=== PATIENT | male | born 1950 | race Caucasian/White ===

== ENCOUNTER 2020-11-06 06:47 | Inpatient (IN) ==
[2020-11-06] MEDS ORDERED: niCARdipine HCL INJ 2.5 MG/ML 10 ML AMP ONE (07:45)
[2020-11-06] MEDS ORDERED: HEPARIN (PORCINE) 1000 UNIT/ML 10 ML (CATH LAB USE ONLY) ONE (07:45)
[2020-11-06] MEDS ORDERED: MIDAZOLAM HCL 1 MG/ML 2ML VIAL ONE (07:45)
[2020-11-06] MEDS ORDERED: fentaNYL citrate 100 MCG/2 ML VIAL ONE (07:45)
[2020-11-06] MEDS ORDERED: NITROGLYCERIN/D5W 100MCG/ML 20ML SYR ONE (07:46)
--- NOTE | 2020-11-06 07:46 | Pre Anesthesia Assessment ---
Date of Service November 06, 2020 Pre Sedation Assessment Vital Signs Temp Pulse Resp BP Pulse Ox 11/06/20 07:03 36.8 C 84 16 154/86 H 96 Pre-Sedation Airway Assessment Smoking Status: Former smoker Hx Sleep Apnea: No Short, Thick Neck: No Thyromental Distance: > or= 3.5 Finger Breadths Oral Cavity: + WNL Mallampati Class: III ASA: ASA3 NPO Status Date of Last Intake of Fluids: 11/06/20 Time of Last Intake of Fluids: 04:30 Last Oral Intake of Fluids Comment: sip with meds Date of Last Intake of Solid Food: 11/05/20 Time of Last Intake of Solid Foods: 18:00 Notes The planned sedation has been discussed with the patient. Informed Consent was obtained. I have identified the patient, determined the appropriateness of sedation and have assessed the patient immediately prior to the procedure. All medicine(s) and interventions are by my order.
--- NOTE | 2020-11-06 07:47 | History & Physical Bridge Note ---
Date of Service November 06, 2020 History & Physical Bridge Note I have examined the patient, reviewed the History & Physical and in the interval since the performance of the History & Physical I have noted the following changes of clinical significance: no changes noted I have explained the risk, benefit and intent to the procedure with the patient and he is willing to proceed.
[2020-11-06] MEDS: SODIUM CHLORIDE 0.9% 1000ML 1,000 ML IV SCH ×2 (08:44→21:10)
--- NOTE | 2020-11-06 08:54 | Cardiac Catheterization ---
Date of Service November 06, 2020 Cardiac Cath Report Cardiac Cath Report Procedure: 1. Coronary angiography 2. Left heart catheterization 3. Left ventriculogram History: This is a 70-year-old male patient who has moderate aortic stenosis by echocardiography and presented with progressive dyspnea on exertion. Procedure summary: After informed consent was obtained the patient was taken to the cardiac catheterization lab where access was obtained from the right radial artery. P reformed 5 Yi diagnostic catheters were utilized for the coronary angiograms. A 5 Yi pigtail catheter was utilized for the left heart catheterization and left ventriculogram. Following the procedure the patient was taken to the holding area the [facility] in stable condition. ACC data: Start time 8:08 AM End time 8:30 AM Opening aortic pressure 123/72 Left ventricular pressure 156/23 Closing aortic pressure 144/67 Sedation 1 mg intravenous Versed IV fluid 75 cc normal saline Contrast 110 cc Optiray Fluoroscopy time 7.1 minutes Radiation 1234 mGy DAP 115.27 [place] per centimeter squared Right dominant system AUC score 7 Coronary angiography: Selective injections of the left coronary artery reveal heavy calcification of the left main trunk and proximal LAD and circumflex. There is a 95% ostial left main stenosis. The remainder of the left coronary system has nonobstructive disease. The left circumflex gives off a large ramus branch and 2 smaller marginal branches distally. The LAD gives off a medium sized first diagonal branch and a large second diagonal branch and then continues on to the apex of the heart. Selective injections of the right coronary artery revealed to be dominant. It is diffusely diseased in its proximal and mid segment and subtotaled in its mid segment. Left ventriculogram: The pigtail catheter easily went into the left ventricle across the aortic valve. There is approximately a 10 to 15 mm gradient across the aortic valve. Left ventricular systolic function is normal with an estimated left ventricular ejection fraction is 60%. The mitral valve is competent. Summary: The patient has severe coronary artery disease with an ostial left main stenosis and a subtotaled mid right. He has mild to moderate aortic stenosis and normal LV function. Recommendations: This patient is best treated with open heart surgery and coronary artery bypass. We will refer the patient to cardiothoracic surgery at [facility].
[2020-11-06] MEDS ORDERED: Heparin IV Adult Wt-Based Standard *NO* Bolus Protocol IV ONE (09:29)
[2020-11-06] MEDS ORDERED: HEPARIN 25000 UNIT/500 ML D5W IV ONE (09:37)
[2020-11-06] MEDS: HEPARIN SODIUM/DEXTROSE 25,000 UNITS/500 ML BAG IV SCH (09:45)
[2020-11-06] MEDS ORDERED: ALBUTEROL HFA 8 GM INHALER INH PRN (12:02)
[2020-11-06] MEDS ORDERED: ALBUTEROL 0.083% NEBU SOLN 3 ML VIAL INH PRN (12:02)
[2020-11-06 17:28] LABS: Partial Thromboplastin Ratio 2.1
[2020-11-06 17:46] LABS: Partial Thromboplastin Time 55.5 Seconds (21.0-31.0)
[2020-11-06] MEDS ORDERED: METOPROLOL TARTRATE 50 MG TAB PO SCH (21:00)
[2020-11-06] MEDS ORDERED: ATORVASTATIN 40 MG TAB PO SCH (21:00)
[2020-11-06] MEDS ORDERED: OMEGA-3 (PURIFIED FISH OIL) 1 GM CAP PO SCH (21:00)
[2020-11-06] MEDS: OMEGA-3 (PURIFIED FISH OIL) 1 GM CAP PO SCH (21:09)
[2020-11-06] MEDS: METOPROLOL TARTRATE 50 MG TAB PO SCH (21:09)
[2020-11-06] MEDS ORDERED: metFORMIN HCL ER 500 MG TABCR PO SCH (21:30)
[2020-11-06] MEDS ORDERED: Nursing to Pharmacy Communication SCH (22:15)
[2020-11-06] MEDS ORDERED: GLUCOSE 10 TABS/TUBE PO PRN (22:30)
[2020-11-06] MEDS ORDERED: CARBOHYDRATES FOR HYPOGLYCEMIA PO PRN (22:30)
[2020-11-06] MEDS ORDERED: GLUCAGON FOR INJ 1 MG VIAL IM PRN (22:30)
[2020-11-06] MEDS ORDERED: DEXTROSE 50% 50 ML SYRINGE IV PRN (22:30)
[2020-11-06] MEDS ORDERED: GLUCOSE 40% GEL 15 GM TUBE PO PRN (22:30)
[2020-11-06] MEDS: INSULIN ASPART 100 UNITS/ML 3 ML PEN SC SCH (23:33)
[2020-11-07] MEDS: HEPARIN SODIUM/DEXTROSE 25,000 UNITS/500 ML BAG IV SCH (03:18)
[2020-11-07 05:24] LABS: Partial Thromboplastin Ratio 2.9
[2020-11-07 05:32] LABS: Partial Thromboplastin Time 75.4 Seconds (21.0-31.0)
[2020-11-07] MEDS: SODIUM CHLORIDE 0.9% 1000ML 1,000 ML IV SCH (07:13)
[2020-11-07] MEDS: INSULIN ASPART 100 UNITS/ML 3 ML PEN SC SCH ×2 (07:58→12:21)
[2020-11-07] MEDS: OMEGA-3 (PURIFIED FISH OIL) 1 GM CAP PO SCH (08:00)
[2020-11-07] MEDS: METOPROLOL TARTRATE 50 MG TAB PO SCH (08:00)
[2020-11-07] MEDS ORDERED: amLODIPine BESYLATE 5 MG TAB PO SCH ×2 (09:00)
[2020-11-07] MEDS ORDERED: MULTIVITAMIN TAB PO SCH (09:00)
[2020-11-07] MEDS ORDERED: ASPIRIN 81 MG ECTAB PO SCH (09:00)
[2020-11-07] MEDS ORDERED: LOSARTAN POTASSIUM 50 MG TAB PO SCH ×2 (09:00)
[2020-11-07] MEDS ORDERED: hydroCHLOROthiazide 25 MG TAB PO SCH ×2 (09:00)
[2020-11-07] MEDS ORDERED: UMECLIDINIUM/VILANTEROL 62.5/25MCG 7 PUFFS/INHALER INH SCH (09:00)
[2020-11-07] MEDS ORDERED: ATORVASTATIN 40 MG TAB PO SCH (09:00)
[2020-11-07] MEDS ORDERED: FLUTICASONE FUROATE 100MCG 14 PUFFS/INHALER INH SCH (09:00)
[2020-11-07] MEDS ORDERED: VITAMIN B COMPLEX TAB PO SCH (09:00)
[2020-11-07] MEDS ORDERED: PANTOprazole 40 MG TAB PO SCH ×2 (09:00)
--- NOTE | 2020-11-07 09:22 | Cardiology Progress Note ---
Date of Service November 07, 2020 Assessment & Plan (1) CAD (coronary artery disease), [place] coronary artery: (2) Diabetes: (3) Aortic stenosis: Plan: The patient is clinically stable and still waiting for a bed at [facility] [place] [facility]. Admission and Anticipated Discharge Date Admission Date: November 06, 2020 Subjective The patient had an uneventful night. No chest pain. No shortness of breath. Review of Systems Review of Systems: Review of Systems: See HPI for pertinent positives. All other 10 point review of systems are negative. Physical Exam Physical Exam: General: no acute distress and stated age Head: normocephalic, no masses, lesions, tenderness or abnormalities Eyes: conjunctiva are pink and non-injected, sclera clear Neck: supple, no adenopathy, no bruits, normal jugular venous pulse, no hepatojugular reflux Chest: normal shape and normal respiratory effort Lungs: clear to auscultation and percussion Cardiac Exam: - regular rate & rhythm, no murmurs gallops or rubs - normal S1, normal S2 Pulses: 2(+) throughout Abdomen: abdomen soft, non-tender, no abnormal masses and no hepatosplenomegaly Musculoskeletal: no gait disturbance, no joint inflammation, no deforming arthritis Extremities: no edema and no cyanosis Neuro: grossly normal exam Results & Data ([facility]) Vital Signs (Past 12 Hours) Vital Signs Temp Pulse Pulse Pulse Resp BP Pulse Ox 11/07/20 07:46 36.4 C L 83 18 164/76 H 96 11/07/20 03:09 36.8 C 75 12 133/67 96 11/06/20 23:08 36.7 C 78 18 148/75 H 95 11/06/20 22:20 80 Laboratory Results Laboratory Results - last 24 hr 11/06/20 11/06/20 11/07/20 16:49 21:05 00:38 APTT 55.5 H* PTT Ratio 2.1 POC Glucose 118 H 127 H 11/07/20 11/07/20 04:32 07:42 APTT 75.4 H* PTT Ratio 2.9 POC Glucose 135 H Medications Administered Current Inpatient Medications Albuterol (Albuterol 0.083% Nebu Soln 3 Ml Vial) 2.5 mg INH Q4H PRN PRN Reason: Shortness Of Breath Stop: 12/06/20 12:01 Albuterol (Albuterol Hfa 8 Gm Inhaler) 1 puffs INH QID PRN PRN Reason: Shortness Of Breath Stop: 12/06/20 12:01 Amlodipine Besylate (Amlodipine Besylate 5 Mg Tab) 5 mg PO QAM MONIQUE Stop: 12/07/20 08:59 Last Admin: 11/07/20 07:59 Dose: 5 mg Documented by: Aspirin (Aspirin 81 Mg Ectab) 81 mg PO QAM MONIQUE Stop: 12/07/20 08:59 Last Admin: 11/07/20 07:59 Dose: 81 mg Documented by: Atorvastatin Calcium (Atorvastatin 40 Mg Tab) 40 mg PO HS MONIQUE Stop: 12/06/20 20:59 Last Admin: 11/06/20 21:09 Dose: 40 mg Documented by: Dextrose (Dextrose 50% 50 Ml Syringe) 25 - 50 ml IV UD PRN; Protocol PRN Reason: Hypoglycemia Protocol Stop: 12/06/20 22:29 Fish Oil (Bath-3 (Purified Fish Oil) 1 Gm Cap) 1 gm PO BID MONIQUE Stop: 12/06/20 20:59 Last Admin: 11/07/20 08:00 Dose: 1 gm Documented by: Fluticasone Furoate (Fluticasone Furoate 100mcg 14 Puffs/Inhaler) 1 puffs INH DAILY MONIQUE Stop: 12/07/20 08:59 Last Admin: 11/07/20 08:00 Dose: 1 puffs Documented by: Glucagon (Glucagon For Inj 1 Mg Vial) 1 mg IM UD PRN; Protocol PRN Reason: Hypoglycemia Protocol Stop: 12/06/20 22:29 Glucose (Glucose 40% Gel 15 Gm Tube) 15 - 30 gm PO UD PRN; Protocol PRN Reason: Hypoglycemia Protocol Stop: 12/06/20 22:29 Glucose (Glucose 10 Tabs/Tube) 4 - 8 tabs PO UD PRN; Protocol PRN Reason: Hypoglycemia Protocol Stop: 12/06/20 22:29 Hydrochlorothiazide (Hydrochlorothiazide 25 Mg Tab) 25 mg PO QAM MONIQUE Stop: 12/07/20 08:59 Last Admin: 11/07/20 07:59 Dose: 25 mg Documented by: Sodium Chloride (Nss 1000ml) 1,000 mls @ 91 mls/hr IV .Q11H MONIQUE Stop: 12/06/20 07:59 Last Admin: 11/07/20 07:13 Dose: 91 mls/hr Documented by: Heparin Sodium/Dextrose (Heparin Sodium/Dextrose) 25,000 units in 500 mls @ 27 mls/hr IV .[id number] [facility]; Protocol Stop: 12/06/20 09:44 Last Titration: 11/07/20 05:32 Dose: 1,350 units/hr, 27 mls/hr Documented by: Insulin Aspart (Insulin Aspart 100 Units/Ml 3 Ml Pen) 0 units SC ACHS [facility] Stop: 12/06/20 22:29 Last Admin: 11/07/20 07:58 Dose: Not Given Documented by: Losartan Potassium (Losartan Potassium 50 Mg Tab) 100 mg PO QAM [facility] Stop: 12/07/20 08:59 Last Admin: 11/07/20 07:59 Dose: 100 mg Documented by: Metformin HCl (Metformin Hcl Er 500 Mg Tabcr) 1,000 mg PO BIDM [facility] Stop: 12/08/20 20:59 Metoprolol Tartrate (Metoprolol Tartrate 50 Mg Tab) 50 mg PO BID [facility] Stop: 12/06/20 20:59 Last Admin: 11/07/20 08:00 Dose: 50 mg Documented by: Miscellaneous (Clobetasol [Temovate] 0.05 % Cream~Order Awaiting Action) 1 ea N/A QS [facility] Stop: 12/06/20 15:59 Last Admin: 11/07/20 07:59 Dose: Not Given Documented by: Miscellaneous (Carbohydrates For Hypoglycemia ) 15 - 30 gm PO UD PRN PRN Reason: Hypoglycemia Treatment Stop: 12/06/20 22:29 Multivitamins (Multivitamin Tab) 1 tab PO DAILY [facility] Stop: 12/07/20 08:59 Last Admin: 11/07/20 07:59 Dose: 1 tab Documented by: Pantoprazole Sodium (Pantoprazole 40 Mg Tab) 40 mg PO QAM [facility] Stop: 12/07/20 08:59 Last Admin: 11/07/20 07:59 Dose: 40 mg Documented by: Umeclidinium/Vilanterol (Umeclidinium/Vilanterol 62.5/25mcg 7 Puffs/Inhaler) 1 puffs INH DAILY [facility] Stop: 12/07/20 08:59 Last Admin: 11/07/20 08:00 Dose: 1 puffs Documented by: Vitamin B Complex (Vitamin B Complex Tab) 2 tab PO DAILY MONIQUE Stop: 12/07/20 08:59 Last Admin: 11/07/20 07:59 Dose: 2 tab Documented by:
[2020-11-07 11:49] LABS: Partial Thromboplastin Ratio 2.4
[2020-11-07 11:51] LABS: Partial Thromboplastin Time 62.8 Seconds (21.0-31.0)
--- NOTE | 2020-11-07 15:25 | Discharge Summary ---
Date of Service November 07, 2020 Admission HPI Per Admitting Provider The patient was at after a cardiac catheterization pending transfer for open heart surgery and coronary artery bypass. Admission Exam Per Admitting Provider General: no acute distress and stated age Head: normocephalic, no masses, lesions, tenderness or abnormalities Eyes: conjunctiva are pink and non-injected, sclera clear Neck: supple, no adenopathy, no bruits, normal jugular venous pulse, no hepatojugular reflux Chest: normal shape and normal respiratory effort Lungs: clear to auscultation and percussion Cardiac Exam: - regular rate & rhythm, no murmurs gallops or rubs - normal S1, normal S2 Pulses: 2(+) throughout Abdomen: abdomen soft, non-tender, no abnormal masses and no hepatosplenomegaly Musculoskeletal: no gait disturbance, no joint inflammation, no deforming arthritis Extremities: no edema and no cyanosis Neuro: grossly normal exam Principal Diagnosis 1. Coronary artery disease with severe three-vessel involvement including left main trunk 2. Aortic stenosis 3. Diabetes Discharge Exam General: no acute distress and stated age Head: normocephalic, no masses, lesions, tenderness or abnormalities Eyes: conjunctiva are pink and non-injected, sclera clear Neck: supple, no adenopathy, no bruits, normal jugular venous pulse, no hepatojugular reflux Chest: normal shape and normal respiratory effort Lungs: clear to auscultation and percussion Cardiac Exam: - regular rate & rhythm, no murmurs gallops or rubs - normal S1, normal S2 Pulses: 2(+) throughout Abdomen: abdomen soft, non-tender, no abnormal masses and no hepatosplenomegaly Musculoskeletal: no gait disturbance, no joint inflammation, no deforming arthritis Extremities: no edema and no cyanosis Neuro: grossly normal exam Discharge Data Allergies Allergy/AdvReac Type Severity Reaction Status Date / Time omeprazole [From Prilosec] Allergy Rash Verified 11/06/20 07:11 Vaccinations The patient is vaccinated against Covid and had a negative Covid screen before admission Procedures Performed Operation Date: 11/06/20 08:00 Actual Procedures s Cineradiography w/Routine Exam - Gabe Jenkins, DO p Cath, Left with Cors and Vent - Gabe Jenkins, DO Ordered Studies 11/06/20 06:34 CL Cath Imgs for PACS use only Stat Hospital Course (1) CAD (coronary artery disease), [place] coronary artery: (2) Diabetes: (3) Aortic stenosis: The patient is clinically stable and still waiting for a bed at [facility]. Total Time Total Time Spent Total Time Spent (In Minutes): 30 minutes spent Discharge Plan Discharge Items Patient Disposition: Transfer Acute Care Hospital Reason For Visit: LEFT MAIN DISEASE Discharge Diagnosis: 1. Coronary artery disease 2. Aortic stenosis 3. Diabetes mellitus Activity: Per Instructions section Non-emergency contact: [employer] Call non-emergency contact if: you have any medication questions, your symptoms worsen, your pain is not controlled, your pain is worsening, your pain is unusual for you, your pain is concerning for you, you have a fever, your temperature is above 101, your temperature is above 101.5, your wound has increased redness, your wound has increased drainage and your wound pain has increased Follow-up/Referrals: Virginia Beth MD [Primary Care Provider] - Diet: Heart Healthy Addtl Attending Provider Instructions: ACTIVITY RECOMMENDATIONS: Excess manipulation of the wrist should be avoided for the next 24-48 hours. * No lifting over 2 pounds (approximately a 1/2 gallon of milk) with the utilized arm for 24 hours. * No strenuous activity such as bowling or tennis for 3 days. * Keep the site of the procedure covered with a bandage for 24 hours. *You may shower the day after the procedure. Do not take a tub bath or submerge the puncture site in water for the next 3 days. *Do not operate any motorized equipment for 3 days. SPECIAL CARE INSTRUCTIONS: The site may be slightly bruised and sore following your procedure. Should any of the following occur, contact the Dr. who performed your procedure. 1. Redness/inflammation, swelling, chills, or fever, or colored drainage at procedure site within 3-7 days after your procedure. 2. Coldness, discoloration, ongoing numbness, severe pain, or swelling. Expect mild tingling of hand and tenderness at the puncture site for up to three days. If this persists beyond three days, or other symptoms develop, notify the Dr. who performed your procedure. BLEEDING: If the procedure site on your wrist begins to bleed, do not panic 1. Place 1 or 2 fingers firmly just slightly above the insertion site to stop the bleeding. You may be able to feel your pulse as you hold pressure. 2. Lift your finger after 5 minutes to see if the bleeding has stopped. 3. Once the bleeding has stopped, gently wipe the wrist area clean with a bandage. * If the bleeding from your wrist does not stop after 10 minutes, or if there is a large amount of bleeding or spurting, call 911 (do not drive yourself to the hospital). SKIN IRRITATION: * You may experience some redness and/or swelling in the area where radiation was administered. If any skin irritation occurs, please contact your family physician. FOLLOW UP VISIT: Keep any scheduled doctor appointments. Pending Studies at Discharge: No Stand-Alone Forms: My [facility] Skilled Items Patient informed of condition?: Yes DNR: No Discharge Level of Care: Other Communicable Disease: No Discharge Prognosis: Stable Lines: Peripheral IV Urinary Catheter: No Medications and DC Order Prescriptions: Continued multivitamin Tablet 1 tab PO DAILY RF: 0 atorvastatin 40 mg Tablet 40 mg PO DAILY RF: 0 albuterol sulfate [Proventil] 2.5 mg /3 mL (0.083 %) Solution For Nebulization 2.5 mg INHALATION Q4H PRN (Reason: Shortness Of Breath) RF: 0 clobetasol [Temovate] 0.05 % Cream 1 applic TOPICAL DAILY RF: 0 amlodipine 5 mg Tablet 10 mg PO DAILY RF: 0 pantoprazole [Protonix] 40 mg Tablet,Delayed Release (Dr/Ec) 40 mg PO DAILY RF: 0 metoprolol tartrate 50 mg Tablet 50 mg PO BID RF: 0 vitamin B complex [B Complex 1] Tablet 2 tab PO DAILY RF: 0 hydrochlorothiazide 25 mg Tablet 25 mg PO DAILY RF: 0 albuterol sulfate [Ventolin HFA] 90 mcg/actuation Hfa Aerosol Inhaler 1 puff INHALATION QID PRN (Reason: Shortness Of Breath) RF: 0 losartan [Cozaar] 100 mg Tablet 100 mg PO DAILY RF: 0 metformin 500 mg Tablet Extended Release 24 Hr 1,000 mg PO BID RF: 0 [place] 3 Capsule 1,000 mg PO BID RF: 0 diclofenac sodium 1 % Gel 2 g TOPICAL QID RF: 0 Trelegy Ellipta 100-62.5-25 mcg Blister With Device 1 inh INHALATION DAILY RF: 0 Discharge Orders: Discharge Order (Routine); Ordered 11/07/20 Ordered By: Gabe Jenkins Admission Data Admit Date/Time: 11/06/20 14:56 Attending Provider: Gabe Jenkins Admit Provider: Gabe Jenkins Primary Care Provider: Virginia Beth
--- NOTE | 2020-11-08 07:48 | Post Anesthesia Assessment ---
Date of Service November 08, 2020 Post Sedation Assessment Vital Signs Temp Pulse Pulse Resp BP BP Pulse Ox 11/07/20 17:58 36.8 C 75 89 18 150/69 H 146/71 H 99 11/07/20 16:00 36.8 C 89 18 150/69 H 99 11/07/20 14:20 97 H 11/07/20 11:50 36.5 C 69 18 153/81 H 96 Recovery Score Activity: Moves 4 extremities Respiration: Deep Breath/Cough Circulation: +/-20% PreAnes Value Consciousness: Fully Awake Oxygen Saturation: > 92% On Room Air Post Anesthesia Score: 10 Discharge Sedation Level of Care: Fast Track Phase II Post Sedation Plan On clinical assessment, the patient appears to have tolerated the sedation without complications. Patient is recovering as anticipated. Patient will continue to be monitored by nursing and may be discharged when sedation discharge criteria are met per below protocol. Upon Completions of procedure up to 15 minutes continue every 5 minute vital signs and the P.A.R. score; then discharge to a Phase I or Fast Track to Phase II per the following guidelines: * Discharge Patient to appropriate Phase II area if PAR is 8 or greater or return to pre- procedure baseline. The post - procedure orders will be as directed. * If PAR score is less than 8 or not return to pre-procedure baseline then patient will follow Phase I monitoring till PAR is reached for Phase II. The Phase I may be done in procedure room or may call to secure a Phase I area. * If naloxone or flumazenil are used for reversal, hold in Phase I for continued monitoring from when last reversal dose was given for a minimum of 60 minutes or longer pending the nurse and/or physician discretion of patient condition before discharge to Phase II. Please call the Sedation Physician to re-evaluate and complete post-note for discharge to Phase II area. Do NOT discharge from procedure sedation or Phase 1 until post- sedation evaluation note is complete by procedure /sedation MD Sedation Discharge Instructions to be given to the patient at discharge to home.
[2020-11-08] MEDS ORDERED: amLODIPine BESYLATE 5 MG TAB PO SCH (09:00)
[2020-11-08] MEDS ORDERED: metFORMIN HCL ER 500 MG TABCR PO SCH (21:00)
== END 2020-11-07 16:35 | disposition short-term general hospital (02) | DRG 287 ==
LOC: CC 06:47 → 2S 14:56